=== PATIENT | female | born 1975 | race Caucasian/White ===

== ENCOUNTER → 2016-08-09 | Outpatient (CLI) | payer BC, OTHER ==
--- NOTE | 2016-08-09 15:33 | DI ---
XR L-SPINE 2-3 VW,08/09/2016 2:50 PM: Clinical History: Status post lumbar spine operation. Previous Exam: May 17, 2016 Findings: AP and lateral views of the lumbar spine are obtained, and demonstrate stable postsurgical changes co nsistent with anterior screw and plate fixation at L5/S1. There is an intervertebral fusion of L4/5 as well. Vertebral body height is preserved. Mild degenerative changes are seen of the posterior articulating facets. Impression: Stable postsurgical changes of the lower lumbar spine.
== END ==
LOC: RAD 14:45
PROVIDERS: ATTEND Neurological Surgery
DX: Z47.89 Encounter for other orthopedic aftercare (principal); Z98.1 Arthrodesis status
CPT/HCPCS: 72100

== ENCOUNTER → 2017-02-22 | Outpatient (CLI) | payer BC, OTHER | LOC: MOB LAB 15:50 | PROVIDERS: ATTEND Obstetrics & Gynecology | DX: N89.8 Other specified noninflammatory disorders of vagina (principal) | CPT/HCPCS: 87480; 87510; 87660 ==